=== PATIENT | male | born 1975 ===

== ENCOUNTER 2024-11-23 09:15 | Outpatient (CLI) | payer OTHER | END 2024-11-23 09:27 | disposition home or self-care (01) | LOC: SONOGRAMA 09:15 | PROVIDERS: ATTEND General Practice | DX: N62 Hypertrophy of breast (principal); N64.89 Other specified disorders of breast; M25.111 Fistula, right shoulder; M19.011 Primary osteoarthritis, right shoulder; R59.0 Localized enlarged lymph nodes ==

== ENCOUNTER 2025-04-13 08:15 | Outpatient (CLI) | payer OTHER | END 2025-04-13 08:33 | disposition home or self-care (01) | LOC: MRI 08:15 | PROVIDERS: ATTEND Specialist | DX: M25.511 Pain in right shoulder (principal) | CPT/HCPCS: 73221 ==